=== PATIENT | female | born 1965 | race Caucasian/White ===

== ENCOUNTER 2021-04-17 07:43 | Emergency (ER) | payer OTHER ==
[~2021-04-17] VITALS: Ht 165.1 cm; Wt 77.1 kg
[2021-04-17] MEDS ORDERED: EFFEXOR XR150 MG PO (07:57)
[2021-04-17 08:31] LABS: URINE BILIRUBIN NEGATIVE (Negative); URINE BLOOD NEGATIVE (Negative); URINE CLARITY CLEAR; URINE COLOR YELLOW; URINE GLUCOSE-RANDOM NEGATIVE (Negative); URINE KETONES NEGATIVE (Negative); URINE LEUKOCYTES-REFLEX NEGATIVE (Negative); URINE NITRITE-REFLEX NEGATIVE (Negative); URINE PROTEIN NEGATIVE (Negative); URINE SPECIFIC GRAVITY <= 1.005 (1.005-1.030); URINE UROBILINOGEN 0.2 E.U./dl (0.2-1.0)
[2021-04-17 08:32] LABS: ABSOLUTE BASOPHILS 0.1 thou/uL (0.0-0.2); ABSOLUTE EOSINOPHILS 0.2 thou/uL (0.0-0.7); ABSOLUTE LYMPHOCYTES 1.7 thou/uL (0.8-5.3); ABSOLUTE MONOCYTES 0.8 thou/uL (0.0-1.2); ABSOLUTE NEUTROPHILS 6.9 thou/uL (1.6-8.1); BASOPHILS 0.7 %; HEMATOCRIT 43.1 % (37.0-47.0); HEMOGLOBIN 14.6 gm/dL (12.0-15.0); LYMPHOCYTES 17.6 %; MCHC 33.9 g/dL (28.0-37.0); MCV 88.5 fL (80.0-100.0); MONOCYTES 8.4 %; MPV 8.5 fl. (7.2-11.1); NUCLEATED RBCS 0 /100WBC; PLATELET COUNT* 261 thou/uL (150-400); POLYS 71.3 %; RBC 4.87 mil/uL (4.20-5.00); RDW-CV 13.6 % (10.5-14.5); WBC 9.7 thou/uL (4.0-11.0)
[2021-04-17 08:42] LABS: CALCIUM 8.9 mg/dL (8.5-10.1); CREATININE 0.8 mg/dL (0.6-1.3); POTASSIUM 4.2 mmol/L (3.5-5.1)
[2021-04-17 08:46] LABS: ALBUMIN 4.2 g/dL (3.4-5.0); TOTAL BILIRUBIN 0.4 mg/dL (<0.1-1.0); TOTAL PROTEIN 8.7 g/dL (6.4-8.2)
[2021-04-17] MEDS ORDERED: MIRALAX119 GM PO (09:45)
--- NOTE | 2021-04-17 09:58 | EKG ---
[place] [address] ELECTROCARDIOGRAM REPORT Name: ANSLEY SANCHEZ Room: [facility]#: [id number] Admission: 04/17/21 Attend Phys: Discharge: Date of : 69 Date of Service: 04/17/21830 Report #: [id number] THIS REPORT FOR: //name// [facility] ED Test Date: 2021-04-17 Test Time: 08:31:05 Pat Name: ANSLEY SANCHEZ Department: Room: Gender: F [employer]: [facility] : 1965 Requested By: Hossein Tirado Order Number: [id number] MD: Jose Luis Hatch Measurements Intervals [place] Rate: 72 P: 40 PA: 142 QRS: 12 QRSD: 86 T: 31 QT: 385 QTc: 422 Interpretive Statements Sinus rhythm Abnormal R-wave progression, early transition Baseline wander in lead(s) II,III,aVF No previous ECG available for comparison Electronically Signed On 04-17-2021 9:58:25 CDT by Jose Luis Hatch [email or web address] <ELECTRONICALLY SIGNED> By: Jose Luis Hatch MD, [facility] 04/17/21957 0 0 Jose Luis Hatch MD, [facility] /EPI
[2021-04-17 10:23] VITALS: BP 145/88
== END 2021-04-17 10:24 | disposition home or self-care (01) ==
LOC: M.ERS 07:43
PROVIDERS: Emergency Medicine Emergency Medical Services
DX: K59.00 Constipation, unspecified (principal); Z90.49 Acquired absence of other specified parts of digestive tract